=== PATIENT | male | born 1960 | race African-American/Black ===

== ENCOUNTER 2016-11-18 19:10 | Inpatient (IN) | payer OTHER ==
[~2016-11-18 19:10] MED LIST: ALDACTONE25 M1 PO; ASPIR 8181 M1 PO; COREG25 M1 PO; HYDROCHLOROTHIA25 M1 PO; NORVASC10 M2 PO; POTASSIUM CHLO20 ME3 PO
[2016-11-18 19:41] LABS: CARBON DIOXIDE-VENOUS 30 mmol/L (21-33); CREATININE 1.77 mg/dl (0.67-1.17); GLUCOSE 227 mg/dl (65-120); POTASSIUM 3.9 mmol/L (3.5-5.3); SODIUM 139 mmol/L (135-146); eGFR VALUE FOR BLACK 49 mL/Min
[2016-11-18 19:45] LABS: BASO % 0.2 % (0-2); EOSINOPHIL ABSOLUTE COUNT 0.2 tho/cmm (0.0-0.7); HCT-HEMATOCRIT 43.4 % (36.0-53.5); HGB-HEMOGLOBIN 14.5 gm/dl (13.5-17.0); IMMATURE GRANULOCYTES ABSOLUTE 0.03 tho/cmm (0-0.03); IMMATURE GRANULOCYTES PERCENT 0.6 % (0-0.3); LYMPH % 21.5 % (20-45); LYMPH ABSOLUTE COUNT 1.1 tho/cmm (0.8-4.5); MCH (MEAN CORPUSCULAR HGB) 30.4 pg (28.0-32.0); MCHC MEAN CORPUSCULAR HGB CONC 33.4 % (32.0-36.0); MEAN PLATELET VOLUME 11.4 cmc (9.4-12.4); MONOCYTE ABSOLUTE COUNT 0.3 tho/cmm (0.0-1.2); NEUTROPHIL ABSOLUTE COUNT 3.7 tho/cmm (1.6-8.0); NEUTROPHIL-AUTOMATED 3.7 tho/cmm (1.6-8.0); NEUTROPHILS % 69.7 % (40-80); PLATELET COUNT 211 tho/cmm (150-450); RED BLOOD COUNT 4.77 mil/cmm (4.40-5.70); WHITE BLOOD COUNT 5.3 tho/cmm (4.0-10.0)
[2016-11-18 19:48] LABS: ABG CO2 ARTERIAL 27 mmol/L (21-27); ARTERIAL BLD GAS O2 SATURATION 100 % (95-98); ARTERIAL BLOOD GAS PCO2 59 mmHg (32-45); ARTERIAL PO2 479 mmHg (70-100); BICARBONATE 25 mmol/L (21-28); BLOOD GAS BASE EXCESS -3 mM/L (-/+3); PH 7.25 Units (7.35-7.45)
[2016-11-18 20:00] LABS: ALBUMIN 3.6 g/dl (3.5-5.0); ALKALINE PHOSPHATASE 128 U/L (33-138); ALT/SGPT 182 U/L (12-78); AST/SGOT 160 U/L (10-40); BILIRUBIN,TOTAL 0.2 mg/dl (0.0-1.5); BLOOD UREA NITROGEN 19 mg/dl (6-24); CALCIUM 8.7 mg/dl (8.5-10.5); CHLORIDE 101 mmol/l (96-110)
[2016-11-18 20:04] LABS: ANION GAP 12 mmol/L (0-20)
[2016-11-18] MEDS ORDERED: LIPITOR10 M1 PO (20:06)
[2016-11-18] MEDS ORDERED: HYDRALAZINE HCL25 M1 PO (20:07)
[2016-11-18] MEDS ORDERED: PRINIVIL20 M1 PO (20:08)
[2016-11-18] MEDS ORDERED: POTASSIUM CHLO20 ME3 PO ×2 (20:09→20:10)
[2016-11-18 20:18] LABS: PROCALCITONIN 0.05 ng/ml (0.05-0.09)
[2016-11-18 21:04] LABS: ABG CO2 ARTERIAL 26 mmol/L (21-27); ARTERIAL BLD GAS O2 SATURATION 99 % (95-98); BICARBONATE 24 mmol/L (21-28); BLOOD GAS BASE EXCESS 0 mM/L (-/+3); PH 7.39 Units (7.35-7.45)
[2016-11-18 21:07] LABS: ARTERIAL BLOOD GAS PCO2 41 mmHg (32-45); ARTERIAL PO2 130 mmHg (70-100)
[2016-11-19 00:05] LABS: URINE APPEARANCE HAZY; URINE BILIRUBIN NEGATIVE (NEG); URINE BLOOD LARGE (NEG); URINE COLOR PALE YELLOW; URINE GLUCOSE (UA) MODERATE (NEG); URINE KETONE NEGATIVE (NEG); URINE LEUKOCYTE ESTERASE NEGATIVE (NEG); URINE NITRITE NEGATIVE (NEG); URINE PROTEIN MODERATE (NEG)
[2016-11-19 00:14] LABS: URINE EPITHELIAL CELLS RARE /[HPF] (0-10); URINE WBC 0-1 /[HPF] (0-5)
[2016-11-19 03:23] LABS: HCT-HEMATOCRIT 41.6 % (36.0-53.5); HGB-HEMOGLOBIN 14.5 gm/dl (13.5-17.0); IMMATURE GRANULOCYTES ABSOLUTE 0.01 tho/cmm (0-0.03); IMMATURE GRANULOCYTES PERCENT 0.1 % (0-0.3); LYMPH % 8.2 % (20-45); LYMPH ABSOLUTE COUNT 0.6 tho/cmm (0.8-4.5); MCH (MEAN CORPUSCULAR HGB) 30.3 pg (28.0-32.0); MCHC MEAN CORPUSCULAR HGB CONC 34.9 % (32.0-36.0); MCV (MEAN CELL VOLUME) 86.8 fl (82.0-96.0); MONO % 3.3 % (0-12); MONOCYTE ABSOLUTE COUNT 0.3 tho/cmm (0.0-1.2); NEUTROPHIL ABSOLUTE COUNT 6.7 tho/cmm (1.6-8.0); NEUTROPHIL-AUTOMATED 6.7 tho/cmm (1.6-8.0); NEUTROPHILS % 88.4 % (40-80); PLATELET COUNT 189 tho/cmm (150-450); RED BLOOD COUNT 4.79 mil/cmm (4.40-5.70); RED CELL DISTRIBUTION WIDTH 12.9 % (12.4-16.4); WHITE BLOOD COUNT 7.5 tho/cmm (4.0-10.0)
[2016-11-19 03:41] LABS: ALB/GLOB RATIO 0.9 (0.8-2.0); ALBUMIN 3.2 g/dl (3.5-5.0); ALKALINE PHOSPHATASE 93 U/L (33-138); ALT/SGPT 150 U/L (12-78); AST/SGOT 101 U/L (10-40); BLOOD UREA NITROGEN 20 mg/dl (6-24); CALCIUM 8.3 mg/dl (8.5-10.5); CARBON DIOXIDE-VENOUS 26 mmol/L (22-32); CHLORIDE 104 mmol/l (96-110); CREATININE 1.59 mg/dl (0.60-1.30); GLUCOSE 144 mg/dL (70-110); SODIUM 140 mmol/L (135-145); eGFR VALUE FOR BLACK 56 mL/Min
[2016-11-19 03:42] LABS: ANION GAP 13 mmol/L (0-20); BILIRUBIN,TOTAL 0.5 mg/dl (0.0-1.5)
[2016-11-19 05:19] LABS: ABG CO2 ARTERIAL 27 mmol/L (21-27); ARTERIAL BLD GAS O2 SATURATION 97 % (95-98); ARTERIAL BLOOD GAS PCO2 35 mmHg (32-45); BICARBONATE 25 mmol/L (21-28); BLOOD GAS BASE EXCESS 3 mM/L (-/+3); PH 7.48 Units (7.35-7.45)
[2016-11-19 05:21] LABS: ARTERIAL PO2 91 mmHg (70-100)
[2016-11-19 09:22] LABS: ABG CO2 ARTERIAL 27 mmol/L (21-27); ARTERIAL BLD GAS O2 SATURATION 96 % (95-98); ARTERIAL BLOOD GAS PCO2 38 mmHg (32-45); ARTERIAL PO2 83 mmHg (70-100); BICARBONATE 26 mmol/L (21-28); BLOOD GAS BASE EXCESS 2 mM/L (-/+3); PH 7.45 Units (7.35-7.45)
[2016-11-20 05:52] LABS: BASO % 0.4 % (0-2); EOSINOPHIL ABSOLUTE COUNT 0.2 tho/cmm (0.0-0.7); HCT-HEMATOCRIT 39.3 % (36.0-53.5); HGB-HEMOGLOBIN 13.4 gm/dl (13.5-17.0); IMMATURE GRANULOCYTES ABSOLUTE 0.01 tho/cmm (0-0.03); IMMATURE GRANULOCYTES PERCENT 0.2 % (0-0.3); LYMPH % 21.3 % (20-45); LYMPH ABSOLUTE COUNT 1.2 tho/cmm (0.8-4.5); MCHC MEAN CORPUSCULAR HGB CONC 34.1 % (32.0-36.0); MCV (MEAN CELL VOLUME) 88.1 fl (82.0-96.0); MEAN PLATELET VOLUME 11.2 cmc (9.4-12.4); MONO % 12.6 % (0-12); MONOCYTE ABSOLUTE COUNT 0.7 tho/cmm (0.0-1.2); NEUTROPHIL ABSOLUTE COUNT 3.5 tho/cmm (1.6-8.0); NEUTROPHIL-AUTOMATED 3.5 tho/cmm (1.6-8.0); NEUTROPHILS % 62.5 % (40-80); PLATELET COUNT 184 tho/cmm (150-450); RED BLOOD COUNT 4.46 mil/cmm (4.40-5.70); RED CELL DISTRIBUTION WIDTH 13.3 % (12.4-16.4); WHITE BLOOD COUNT 5.6 tho/cmm (4.0-10.0)
[2016-11-20 06:10] LABS: ALB/GLOB RATIO 0.8 (0.8-2.0); ALBUMIN 2.8 g/dl (3.5-5.0); ALKALINE PHOSPHATASE 81 U/L (33-138); ALT/SGPT 91 U/L (12-78); ANION GAP 11 mmol/L (0-20); AST/SGOT 32 U/L (10-40); BILIRUBIN,TOTAL 0.5 mg/dl (0.0-1.5); BLOOD UREA NITROGEN 23 mg/dl (6-24); CALCIUM 8.2 mg/dl (8.5-10.5); CARBON DIOXIDE-VENOUS 28 mmol/L (22-32); CHLORIDE 105 mmol/l (96-110); CREATININE 1.71 mg/dl (0.60-1.30); GLUCOSE 92 mg/dL (70-110); MAGNESIUM 2.1 mg/dl (1.8-2.6); SODIUM 141 mmol/L (135-145); eGFR VALUE FOR BLACK 51 mL/Min
[2016-11-20 06:18] LABS: POTASSIUM 2.9 mmol/L (3.7-5.1)
[2016-11-20] MEDS ORDERED: VIGAMOX3 M1 EACH EYE (10:46)
[2016-11-20] MEDS ORDERED: PROAIR HFA8.5 GM INH (10:47)
== END 2016-11-20 12:55 | DRG 208 ==
LOC: EDMED 19:10 → EMR2 21:39 → CCU 23:35
PROVIDERS: Emergency Medicine; Internal Medicine Pulmonary Disease; ADMIT Family Medicine
PROC: 5A1945Z Respiratory Ventilation, 24-96 Consecutive Hours (ICD-10-PCS; principal; 2016-11-18)
PROC: 0BH17EZ Insertion of Endotracheal Airway into Trachea, Via Natural or Artificial Opening (ICD-10-PCS; 2016-11-18)
DX: J96.90 Respiratory failure, unspecified, unspecified whether with hypoxia or hypercapnia (principal); I46.9 Cardiac arrest, cause unspecified; E87.2 Acidosis; N17.9 Acute kidney failure, unspecified; I12.9 Hypertensive chronic kidney disease with stage 1 through stage 4 chronic kidney disease, or unspecified chronic kidney disease; I25.10 Atherosclerotic heart disease of native coronary artery without angina pectoris; H10.30 Unspecified acute conjunctivitis, unspecified eye; R00.0 Tachycardia, unspecified; N18.3 Chronic kidney disease, stage 3 (moderate)
CPT/HCPCS: C8929; J1650; J2250; J2543; J3480; P9612; Q9967